=== PATIENT | male | born 1935 | race Caucasian/White ===

== ENCOUNTER 2018-07-25 00:52 | Emergency (ER) | payer OTHER ==
[~2018-07-25] VITALS: Ht 177.8 cm; Wt 54.5 kg
[2018-07-25 00:58] VITALS: Ht 177.8 cm; Wt 54.5 kg
--- NOTE | 2018-07-25 01:00 | ERD ---
ER Documentation Chief Complaint Chief Complaint sob HPI The patient is a 83-year-old male, presenting to the ER because of acute dyspnea this evening. He was discharged from [facility] on July 06, 2018 for pneumonia, he feels antibiotic days ago. He normally uses 1 to 2 L nasal cannula upon discharge. Tonight he became dyspneic, O2 saturation on 4 L was only 48%. When EMS arrived, O2 sat was 60% on 4 L. He was immediately put on CPAP and transferred to the ER. He is tachypneic, tachycardic only able to answer yes or no question. Most of the history is obtained from the EMS, later obtained from the who arrived to the ER later. Past medical history: Dyslipidemia, diabetes mellitus, hypertension ROS All systems reviewed and are negative except as per history of present illness. Medications Home Meds Reported Medications Aspirin Ec (Aspir 81) 81 Mg Tablet.dr, 81 MG PO DAILY, #30 TAB 07/25/18 Simvastatin (Simvastatin) 40 Mg Tablet, 40 MG PO QHS for 100 Days, #100 07/25/18 Metformin Hcl* (Glumetza*) 1,000 Mg Iovuvrt27c, 1000 MG PO BID for 100 Days, #200 07/25/18 Atenolol* (Atenolol*) 25 Mg Tablet, 25 MG PO DAILY, #30 TAB 07/25/18 Amlodipine Besylate* (Amlodipine Besylate*) 2.5 Mg Tablet, 2.5 MG PO DAILY, #30 TAB 07/25/18 Albuterol Sulfate* (Ventolin HFA*) 18 Gm Hfa.aer.ad, 2 PUFF INHALATION Q4H, #1 INHALER 07/25/18 Allergies Allergies: Coded Allergies: No Known Allergy (Unverified , 07/25/18) Physical Exam Vitals Vital Signs Date Temp Pulse Resp B/P (MAP) Pulse Ox O2 O2 Flow FiO2 Time Delivery Rate 07/25/18 82 26 149/73 98 BIPAP 04:40 (98) 07/25/18 78 23 130/64 98 BIPAP 03:30 (86) 07/25/18 84 97 40 03:22 07/25/18 98.1 84 27 135/65 94 Nasal 4.0 02:59 (88) Cannula 07/25/18 99.1 89 22 134/89 94 4.0 02:55 (104) 07/25/18 85 28 135/64 99 BIPAP 02:30 (87) 07/25/18 4.0 01:57 07/25/18 89 30 135/55 99 BIPAP 01:30 (81) 07/25/18 91 100 60 01:05 07/25/18 99.1 99 26 165/70 96 00:58 (101) Physical Exam Const: acute distress. Head: Atraumatic. Eyes: Normal Conjunctiva. ENT: Normal External Ears, Nose and Mouth. Neck: Full range of motion. No meningismus. Resp: Tachypneic, bilateral crackle Cardio: Regular tachycardic Abd: Soft, non distended, normal bowel sounds, non tender. Skin: No petechiae or rashes. Back: No midline or flank tenderness. Ext: No cyanosis, or edema. Neur: Awake and alert. No focal deficit Psych: Normal Mood and Affect. Result Diagram: 07/25/18 0105 07/25/18 0105 Results 24 hrs Laboratory Tests Test 07/25/18 01:00 07/25/18 01:05 07/25/18 01:45 07/25/18 02:57 POC Venous 1.7 mmol/L Lactate White Blood 25.6 10^3/ul Count Red Blood Count 3.98 10^6/ul Hemoglobin 10.6 g/dl Hematocrit 32.5 % Mean Corpuscular 81.7 fl Volume Mean Corpuscular 26.6 pg Hemoglobin Mean Corpuscular 32.6 g/dl Hemoglobin Tori nt Red Cell 13.6 % Distribution Width Platelet Count 307 10^3/UL Mean Platelet 9.5 fl Volume Immature 1.100 % Granulocytes % Neutrophils % 85.0 % Lymphocytes % 8.9 % Monocytes % 4.5 % Eosinophils % 0.2 % Basophils % 0.3 % Nucleated Red 0.0 /100WBC Blood Cells % Immature 0.270 10^3/ul Granulocytes # Neutrophils # 21.8 10^3/ul Lymphocytes # 2.3 10^3/ul Monocytes # 1.1 10^3/ul Eosinophils # 0.0 10^3/ul Basophils # 0.1 10^3/ul Nucleated Red 0.0 10^3/ul Blood Cells # Prothrombin Time 18.1 Sec Prothrombin Time 1.4 Ratio INR 1.49 International Normalized Ratio Activated 34.9 Sec Partial Thrombop last Time Sodium Level 126 mmol/L Potassium Level 3.6 mmol/L Chloride Level 92 mmol/L Carbon Dioxide 28 mmol/L Level Anion Gap 6 Blood Urea 15 mg/dl Nitrogen Creatinine 0.58 mg/dl Est Glomerular mL/min Filtrat Rate mL/min Glucose Level 188 mg/dl Calcium Level 7.6 mg/dl Total Bilirubin 0.6 mg/dl Direct Bilirubin 0.00 mg/dl Indirect 0.6 mg/dl Bilirubin Aspartate Amino 60 IU/L Transf (AST/SGOT ) Alanine 73 IU/L Aminotransferase (ALT/SGPT) Alkaline 124 IU/L Phosphatase Troponin I < 0.012 ng/ml Total Protein 6.4 g/dl Albumin 2.7 g/dl Globulin 3.70 g/dl Albumin/Globulin 0.72 Ratio Blood Gas Blood arterial Specimen Source Arterial Blood 07/25/2018 1:40:0 Date Drawn 7 AM Arterial Blood 7.468 pH (Temp corrected) Arterial Blood 35.8 mmhg pCO2 (Temp correct) Arterial Blood 196.3 mmHG pO2 (Temp corrected) Arterial Blood 25.4 mmol/L HCO3 Arterial Blood 1.8 mmol/L Base Excess Arterial Blood 99.2 mmHG Oxygen Saturatio n Jaylan Test ACCEPTAB Arterial Blood Right Radial Gas Puncture Site Arterial 0.3 % Blood Carboxyhem oglobin Arterial Blood 0.4 % Methemoglobin Blood Gas A-a O2 192.1 mmHg Differential Oxyhemoglobin 98.5 % Percent Blood Gas 37.0 C Temperature Blood Gas 18.0 Respiration Rate Blood Gas Actual 30 Respiration Rate Blood Gas MASK - BIPAP Modality FiO2 60.0 % Blood Gas 15/5 IPAP/EPAP Ratio Blood Gas MG Notified Whom Blood Gas 07/25/2018 1:44:3 Notified Time 5 AM Lactic Acid 1.3 mmol/L Level Current Medications Medications Dose Sig/Kostas Start Time Status Last (Trade) Ordered Route PRN Stop Time Admin Dose Reason Admin Vancomycin 250 ml @ ONCE ONCE 07/25/18 DC 07/25/18 HCl 125 mls/hr IVPB 02:30 03:15 07/25/18 04:29 Piperacillin 100 ml @ ONCE ONCE 07/25/18 DC 07/25/18 Sod/ 200 mls/hr IVPB 02:30 02:41 Tazobactam 07/25/18 02:59 Sod Procedures/MDM [facility] [place] [address] Radiology Main Line: [phone] DIAGNOSTIC IMAGING REPORT Patient: MARCUS VALDES : 1935 Age: 83 Sex: M MR #: [id number] DOS: 07/25/18 0100 Ordering MD: JANE CHÁVEZ MD Location: E/R Room/Bed: PROCEDURE: XR Chest. CLINICAL INDICATION: Sepsis TECHNIQUE: AP view of the chest was obtained COMPARISON: None. FINDINGS: Hypoventilatory chest. Heart normal limits size. Calcific atherosclerosis of the aorta. Diffuse inhomogeneous patchy consolidative infiltrates worse involving the upper lungs and medial lung bases. The pulmonary vasculature is somewhat obscured by the infiltrates. No definite congestion. No pleural effusions and pneumothorax. IMPRESSION: Diffuse bilateral infiltrates. RPTAT:AAJJ Physician Jose Enrique Date Time Electronically viewed and signed by Betty Uribe Physician on 07/25/2018 02:12 BM/ CC: JANE CHÁVEZ MD [id number] EKG: Read by emergency physician Rate/Rhythm: Normal Sinus Rhythm 95 beats/min QRS, ST, T-waves: No ST elevation, no T inversion, prolong QT, artifacts Impression: Abnormal EKG UA Pending MEDICAL MAKING DECISION: The patient is a 83-year-old male, presenting with acute respiratory failure, acute bilateral pneumonia, acute hyponatremia. He was put on BiPAP immediately and was ambulatory BiPAP well. We tried to wean him off the BiPAP he was unable to do it, became tachypneic, tachycardic and dyspneic. He was therefore put back on BiPAP. He was treated with vancomycin IV and Zosyn IV for acute bilateral pneumonia The differential diagnoses considered include but are not limited to asthma, COPD, pneumonia, pulmonary embolus, pleural effusion, congestive heart failure. Critical Care: Time: 35 minutes excluding all billable procedures. Treatments/Evaluations: Close monitoring and treatment of unstable vital signs, cardiorespiratory, and neurologic status, while maintaining tight balance of fluid, respiratory, and cardiac interventions. Departure Diagnosis: Primary Impression: Respiratory failure, acute Additional Impressions: Bilateral pneumonia Hyponatremia Abnormal LFTs Anemia Condition: Critical Comments I discussed the findings with the patient. I discussed the patient with [facility] Dr. Dr. Munguia at 3 AM, who was made aware of the lab, the treatment, the patient condition. The patient is transferred via ambulance Disclaimer: Inadvertent spelling and grammatical errors are likely due to EHR/dictation software use and do not reflect on the overall quality of patient care. Also, please note that the electronic time recorded on this note does not necessarily reflect the actual time of the patient encounter. JANE CHÁVEZ MD July 25, 2018 01:00
[2018-07-25] MEDS ORDERED: PIPER-TAZO 3.375 GM IV (PMX) 100 ML IVPB ONE (02:30)
[2018-07-25] MEDS ORDERED: VANCOMYCIN 1 GM (PMX) 250 ML IVPB ONE (02:30)
[2018-07-25] MEDS ORDERED: ATEN-51 PO (04:03)
[2018-07-25] MEDS ORDERED: [UNRECOGNIZED DRUG - CODE] PO (04:03)
[2018-07-25] MEDS ORDERED: ALBU18HF INHALATION (04:03)
[2018-07-25] MEDS ORDERED: SIMV40TA7 PO (04:03)
[2018-07-25] MEDS ORDERED: ASPI-535 PO (04:03)
[2018-07-25] MEDS ORDERED: AMLO2.5T78 PO (04:03)
[2018-07-25 04:40] VITALS: BP 149/73; PULSE 82; RESP 26
== END 2018-07-25 05:05 | disposition short-term general hospital (02) ==
LOC: E/R 00:52
DX: J06.9 Acute upper respiratory infection, unspecified (principal); J18.9 Pneumonia, unspecified organism; D64.9 Anemia, unspecified; R94.5 Abnormal results of liver function studies; E87.1 Hypo-osmolality and hyponatremia; E11.9 Type 2 diabetes mellitus without complications; I10 Essential (primary) hypertension; Z79.82 Long term (current) use of aspirin; Z79.84 Long term (current) use of oral hypoglycemic drugs
CPT/HCPCS: 36600; 71045; 80053; 82803; 83605; 84484; 85025; 85610; 85730; 87040; 93005; 94660; J2543; J3370; 36415; 96365; 96375